=== PATIENT | female | born 1955 | race Caucasian/White ===

== ENCOUNTER 2017-03-13 18:34 | Emergency (ER) | payer OTHER ==
[~2017-03-13] VITALS: Ht 167.6 cm; Wt 159.0 kg
[~2017-03-13 18:34] MED LIST: BP MEDICATION; DIABETA,MICRONAS5 MG PO; PERCOCET 5/31 TABLET PO; VALIUM5 MG PO
[2017-03-13 20:22] VITALS: BP 191/85
== END 2017-03-13 20:27 | disposition home or self-care (01) ==
LOC: EME 18:34
DX: S00.83XA Contusion of other part of head, initial encounter (principal); S80.02XA Contusion of left knee, initial encounter; S80.01XA Contusion of right knee, initial encounter; M25.512 Pain in left shoulder; W01.198A Fall on same level from slipping, tripping and stumbling with subsequent striking against other object, initial encounter; Y93.01 Activity, walking, marching and hiking; I10 Essential (primary) hypertension; E11.9 Type 2 diabetes mellitus without complications; Z79.84 Long term (current) use of oral hypoglycemic drugs; E66.01 Morbid (severe) obesity due to excess calories; Z68.43 Body mass index [BMI] 50.0-59.9, adult
CPT/HCPCS: 99281; 99284

== ENCOUNTER 2018-01-21 22:08 | Observation (INO) | payer OTHER ==
[~2018-01-21] VITALS: Ht 167.6 cm; Wt 152.0 kg
[2018-01-21 22:36] LABS: HEMATOCRIT 38.4 % (36.0-46.0); HEMOGLOBIN 12.6 G/DL (11.9-15.5); MCH 26.3 PG (29.0-34.0); MCHC 32.8 G/DL (30.0-36.0); MCV 80.2 FL (83-99); PLATELET COUNT 253 K/uL (156-360); RBC DIS.WIDTH-CV 13.3 % (11.8-14.6); RBC DIS.WIDTH-SD 38.8 % (39-53); RED BLOOD COUNT 4.79 M/uL (3.80-5.20); WHITE BLOOD COUNT 9.5 K/uL (4.1-10.2)
[2018-01-21 22:55] LABS: CHLORIDE 102 mEq/L (99-109); POTASSIUM 3.7 mEq/L (3.7-5.4); SODIUM 144 mEq/L (136-147)
[2018-01-21 22:57] LABS: GLUCOSE 146 mg/dL (70-99)
[2018-01-21 23:00] LABS: CREATININE 1.2 mg/dL (0.6-1.3); GFR ESTIMATE (CALCULATED) 48 mL/min/
[2018-01-21 23:01] LABS: UREA NITROGEN (BUN) 22 mg/dL (9-23)
[2018-01-21 23:04] LABS: TROP-I INTERPRETATION NEGATIVE; TROPONIN-I 0.01 ng/mL (0.0-0.30)
[2018-01-22] MEDS ORDERED: ROCALTROL0.5 MCG PO (00:16)
[2018-01-22] MEDS ORDERED: TRAMADOL HCL50 MG PO (00:17)
[2018-01-22] MEDS ORDERED: APRESOLINE10 MG PO (00:17)
[2018-01-22] MEDS ORDERED: GLUCOTROL XL5 MG PO (00:18)
[2018-01-22] MEDS ORDERED: RABEPRAZOLE SOD20 MG PO (00:18)
[2018-01-22] MEDS ORDERED: LISINOPRIL20 MG PO (00:19)
[2018-01-22] MEDS ORDERED: PRAVASTATIN SOD20 MG PO (00:19)
[2018-01-22] MEDS ORDERED: RANITIDINE HCL300 MG PO (00:20)
[2018-01-22] MEDS ORDERED: LABETALOL HCL100 MG PO (00:21)
[2018-01-22] MEDS ORDERED: ANORO ELLIPTA1 EACH IH (00:21)
[2018-01-22] MEDS ORDERED: ONDANSETRON ODT4 MG PO (00:22)
[2018-01-22] MEDS ORDERED: PROAIR HFA8.5 GM IH (00:23)
[2018-01-22] MEDS ORDERED: IMODIUM A-D2 M2 PO (00:24)
[2018-01-22 01:34] VITALS: BP 197/83
[2018-01-22 01:50] VITALS: BP 154/50
[2018-01-22 07:16] LABS: TROP-I INTERPRETATION NEGATIVE; TROPONIN-I 0.02 ng/mL (0.0-0.30)
[2018-01-22 08:11] VITALS: BP 188/79
[2018-01-22 12:26] VITALS: BP 180/82
[2018-01-22 12:35] LABS: TROP-I INTERPRETATION NEGATIVE; TROPONIN-I 0.02 ng/mL (0.0-0.30)
[2018-01-22 12:36] VITALS: BP 119/59
[2018-01-22 12:52] VITALS: BP 158/84
== END 2018-01-22 13:53 | disposition home or self-care (01) ==
LOC: EME → EDSEX 22:08 → EDBD 22:08 → EDOF 01-22 00:10 → ENRESERV 01-22 00:11 → 5WEST 01-22 01:26
PROVIDERS: Internal Medicine
DX: R07.9 Chest pain, unspecified (principal); I16.0 Hypertensive urgency; I12.9 Hypertensive chronic kidney disease with stage 1 through stage 4 chronic kidney disease, or unspecified chronic kidney disease; E11.22 Type 2 diabetes mellitus with diabetic chronic kidney disease; N18.9 Chronic kidney disease, unspecified; R60.0 Localized edema; J44.9 Chronic obstructive pulmonary disease, unspecified; M19.90 Unspecified osteoarthritis, unspecified site; E78.5 Hyperlipidemia, unspecified; K21.9 Gastro-esophageal reflux disease without esophagitis; E66.01 Morbid (severe) obesity due to excess calories; I89.0 Lymphedema, not elsewhere classified; Z90.49 Acquired absence of other specified parts of digestive tract; Z90.710 Acquired absence of both cervix and uterus; Z86.19 Personal history of other infectious and parasitic diseases; Z87.891 Personal history of nicotine dependence; Z83.3 Family history of diabetes mellitus; Z82.49 Family history of ischemic heart disease and other diseases of the circulatory system; Z79.84 Long term (current) use of oral hypoglycemic drugs
CPT/HCPCS: 71046; 80048; 82948; 84484; 85027; 93005; 94640; 99281; 99285; G0378; J1644